=== PATIENT | male | born 1985 | race Caucasian/White ===

== ENCOUNTER 2016-10-22 16:57 | Emergency (ER) | payer OTHER ==
[~2016-10-22] VITALS: Ht 167.6 cm; Wt 53.5 kg
[~2016-10-22 16:57] MED LIST: Z.0.NO CURRENT MEDS
[2016-10-22 17:13] VITALS: BP 136/78; PULSE 58; RESP 16; TEMP 98.2; O2SAT 100
[2016-10-22] MEDS ORDERED: PROPARACAINE HCL 0.5% OPHT SOLN 15 ML BTL RIGHT EYE ONE (17:30)
[2016-10-22] MEDS ORDERED: POLY10O LEFT EYE (18:09)
[2016-10-22] MEDS ORDERED: ERYTOIN10 EACH EYE (18:09)
--- NOTE | 2016-10-22 18:09 | PD ---
HPI Chief Complaint: Eye Problems/Injury Time Seen by Provider: 17:51 Travel History International Travel<30 days: No Contact w/Intl Traveler<30days: No Traveled to known affect area: No History of Present Illness HPI Patient 30-year-old male presents emergency department 2 hours after playing with his daughter. Patient states that his daughter accidentally scratched him in the left eye. Since then he's been having left eye pain as well as photophobia and foreign body sensation. Patient denies any interventions prior to arrival. States it is now starting make his nose run and have a mild headache as well. Does not wear contacts nor corrective lenses. PFSH Past Medical History Medical History: Denies Significant Hx Diminished Hearing: No Past Surgical History Surgical History: No Previous Surgery Social History Alcohol Use: Yes (OCC) Tobacco Use: No Substance Use: No Allergies-Medications (Allergen,Severity, Reaction): Coded Allergies: No Known Allergies (Verified , 10/22/16) Reported Meds & Prescriptions Reported Meds & Active Scripts Active Erythromycin Opth Oint 5 Mg/Gm Oint 1 Applic EACH EYE BID Polytrim Opth Drops (Polymyxin/Trimethoprim Sulfate) 10,000-0.1 Unit/Ml-% Soln 1 Drop LEFT EYE Q6HR Reported No Current Meds (Miscellaneous Medication) Misc Review of Systems Except as stated in HPI: all other systems reviewed are Neg Physical Exam Narrative GENERAL: Well-nourished, well-developed patient. SKIN: Warm and dry. HEAD: Normocephalic. EYES: No scleral icterus. Pupils equal round and reactive to light and accommodation. I checked movements intact. No injection of the left eye, no foreign body seen. No eyelids everted. Right eye is normal. Fluorescein staining shows a 4 mm oblong abrasion in the 5 o'clock position just remove the pupil.. Ampaor sign negative. NECK: Supple, trachea midline. No JVD or lymphadenopathy. CARDIOVASCULAR: Regular rate and rhythm without murmurs, gallops, or rubs. RESPIRATORY: Breath sounds equal bilaterally. No accessory muscle use. GASTROINTESTINAL: Abdomen soft, non-tender, nondistended. MUSCULOSKELETAL: No cyanosis, or edema. Data Data Last Documented VS Vital Signs Date Time Temp Pulse Resp B/P Pulse Ox O2 Delivery O2 Flow Rate FiO2 10/22/16 17:13 98.2 58 16 136/78 100 Orders Proparacaine 0.5% Opth Soln (Alcaine 0.5 (10/22/16 17:30) [facility] Medical Decision Making Medical Screen Exam Complete: Yes Emergency Medical Condition: Yes Differential Diagnosis Corneal abrasion, open globe excluded clinically, conjunctivitis unlikely, Narrative Course Patient was roomed in the emergency department, forcing staining confirms that he has a corneal abrasion. Patient feeling better after proparacaine drops in the emergency part. Discussed symptomatically management home. We'll prescribe antibiotic ointments for prophylaxis. Follow-up with sanitary inspector and expected management discussed. Diagnosis Primary Impression: Corneal abrasion Qualified Code: S05.02XA - Corneal abrasion, left, initial encounter Referrals: Ai Hurt MD Med/Other Pt SpecificInfo: Prescription(s) given Scripts Erythromycin Opth Oint 5 Mg/Gm Oint1 Applic EACH EYE BID #1 TUBE Ref 0 Prov:Brandon Angel MD 10/22/16 Polymyxin B-Trimethoprim Opth Drops (Polytrim Opth Drops)10,000-0.1 Unit/Ml-% Soln1 Drop LEFT EYE Q6HR #1 BOTTLE Ref 0 Prov:Brandon Angel MD 10/22/16 Disposition: 01 DISCHARGE HOME Condition: Stable Brandon Angel MD Oct 22, 2016 18:09
== END 2016-10-22 18:20 | disposition home or self-care (01) ==
LOC: PHEFT 16:57
DX: S05.02XA Injury of conjunctiva and corneal abrasion without foreign body, left eye, initial encounter (principal); W50.4XXA Accidental scratch by another person, initial encounter; Y93.F9 Activity, other caregiving; R51 Headache
CPT/HCPCS: 99283

== ENCOUNTER 2017-08-24 07:57 | Emergency (ER) | payer SELFPAY ==
[~2017-08-24] VITALS: Ht 165.1 cm; Wt 54.7 kg
[~2017-08-24 07:57] MED LIST changes: +ERYTOIN10 EACH EYE; +POLY10O LEFT EYE
[2017-08-24 08:03] VITALS: BP 119/75; PULSE 50; RESP 16; TEMP 97.3; O2SAT 97
[2017-08-24] MEDS ORDERED: PROPARACAINE HCL 0.5% OPHT SOLN 15 ML BTL LEFT EYE ONE (08:30)
--- NOTE | 2017-08-24 08:44 | PD ---
HPI Chief Complaint: Eye Problems/Injury Time Seen by Provider: 08:17 Travel History International Travel<30 days: No Contact w/Intl Traveler<30days: No Traveled to known affect area: No History of Present Illness HPI This 31-year-old male is complaining of pain in his left eye. He says the pain started 2 days ago. Started fairly abruptly. He is not aware of any trauma. He does work as a cds sales advisor. He does not work with a fusion juncture grinder. His vision has not been affected. He has had a lot of tearing. He had a corneal abrasion was here secondary to getting his daughter's fingers in his thigh and he says this feels the same way, although he is not aware of any trauma PFSH Past Medical History Diminished Hearing: No Social History Alcohol Use: Yes ([facility]) Tobacco Use: No Substance Use: No Allergies-Medications (Allergen,Severity, Reaction): Coded Allergies: No Known Allergies (Verified Adverse Reaction, Unknown, 08/24/17) Reported Meds & Prescriptions Reported Meds & Active Scripts Active No Active Prescriptions or Reported Medications Review of Systems General / Constitutional: No: Fever, Chills Eyes: Positive: Photophobia, Redness, Pain, No: Diploplia Cardiovascular: No: Chest Pain or Discomfort Respiratory: No: Cough Genitourinary: No: Urgency Musculoskeletal: No: Myalgias Skin: No Rash Physical Exam Narrative GENERAL: Well-developed male SKIN: Focused skin assessment warm/dry. HEAD: Atraumatic. Normocephalic. EYES: Pupils equal and round. No scleral icterus. There is conjunctival injection of the left eye. Patient's pain was relieved immediately with proparacaine. On fluorescein stain there is a area of staining is lateral to the midline of the pupil which is quite small. ENT: No nasal bleeding or discharge. Mucous membranes pink and moist. NECK: Trachea midline. No JVD. CARDIOVASCULAR: Regular rate and rhythm. No murmur appreciated. RESPIRATORY: No accessory muscle use. Clear to auscultation. Breath sounds equal bilaterally. GASTROINTESTINAL: Abdomen soft, non-tender, nondistended. Hepatic and splenic margins not palpable. MUSCULOSKELETAL: No obvious deformities. No clubbing. No cyanosis. No edema. NEUROLOGICAL: Awake and alert. No obvious cranial nerve deficits. Motor grossly within normal limits. Normal speech. PSYCHIATRIC: Appropriate mood and affect; insight and judgment normal. Data Data Last Documented VS Vital Signs Date Time Temp Pulse Resp B/P (MAP) Pulse Ox O2 Delivery O2 Flow Rate FiO2 08/24/17 08:03 97.3 50 16 119/75 (90) 97 Orders Orders Proparacaine 0.5% Opth Soln (Alcaine 0.5 (08/24/17 08:30) MDM Medical Decision Making Medical Screen Exam Complete: Yes Emergency Medical Condition: Yes Medical Record Reviewed: Yes Differential Diagnosis Differential includes conjunctivitis, corneal abrasion Narrative Course Examination consistent with corneal abrasion. The patient had an abrasion last year and has prescription of Polytrim and erythromycin. I have recommended he continue these medications. Diagnosis Primary Impression: Corneal abrasion Qualified Codes: S05.02XA - Injury of conjunctiva and corneal abrasion without foreign body, left eye, initial encounter Additional Instructions: Use erythromycin ointment at night and Polytrim solution during the day every 3 hours. Follow-up with ophthalmology Scripts No Active Prescriptions or Reported Meds Disposition: 01 DISCHARGE HOME Condition: Stable Gael Gamez MD Aug 24, 2017 08:44
== END 2017-08-24 09:02 | disposition home or self-care (01) ==
LOC: PHED 07:57
DX: S05.02XA Injury of conjunctiva and corneal abrasion without foreign body, left eye, initial encounter (principal)
CPT/HCPCS: 99283